=== PATIENT | female | born 2000 | race Two or more races ===

== ENCOUNTER 2022-10-28 01:22 | Emergency (ER) | payer SELFPAY ==
[~2022-10-28] VITALS: Ht 152.4 cm; Wt 41.7 kg
--- NOTE | 2022-10-28 01:30 | NUR ---
TO ER BED 12. BIBMOTHER C/O ABD PAIN AND N/V. PT IS ALERT AND ORIENTED. RR EVEN AND NON LABORED. CONNECTED TO MONITOR
[2022-10-28] MEDS ORDERED: IBUPROFEN 400 MG TABLET PO ONE (02:30)
[2022-10-28 02:56] LABS: BASOPHILS % (AUTO) 0.6 % (0.0-2.0); EOSINOPHILS % (AUTO) 2.2 % (0.0-6.0); HEMATOCRIT 37 % (33-45); HEMOGLOBIN 12.2 g/dL (11.5-14.8); LYMPHOCYTES # (AUTO) 1.9 K/uL (0.8-4.8); LYMPHOCYTES % (AUTO) 23.1 % (20.0-44.0); MEAN CORPUSCULAR HGB CONC 34 g/dl (31.0-36.0); MEAN CORPUSCULAR VOLUME 86 fL (82-100); MONOCYTES # (AUTO) 0.6 K/uL (0.1-1.30); MONOCYTES % (AUTO) 7.7 % (2.0-12.0); NEUTROPHILS # (AUTO) 5.4 K/uL (1.8-8.9); NEUTROPHILS % (AUTO) 66.4 % (43.0-81.0); PLATELET COUNT (AUTO) 261 K/uL (150-450); RED BLOOD CELL COUNT(AUTO) 4.23 MIL/uL (4.0-5.2); WHITE BLOOD COUNT (AUTO) 8.2 K/uL (4.3-11.0)
--- NOTE | 2022-10-28 03:02 | NUR ---
ULTRASOUND AT BEDSIDE
[2022-10-28 03:04] LABS: CALCIUM, SERUM 8.7 mg/dL (8.5-10.1); CREATININE 0.5 mg/dL (0.6-1.3); POTASSIUM 3.4 mmol/L (3.5-5.1)
[2022-10-28 03:08] LABS: BILIRUBIN,URINE NEGATIVE (NEGATIVE); COLOR,URINE YELLOW (YELLOW); LEUKOCYTE ESTERASE ,URINE 2+ (NEGATIVE); NITRITE, URINE NEGATIVE (NEGATIVE); PROTEIN,URINE NEGATIVE (NEGATIVE); UGLUCOSE NEGATIVE (NEGATIVE); UROBILINOGEN,URINE 0.2 EU/dL (0.2)
[2022-10-28] MEDS ORDERED: IBUPROFEN 400 MG TABLET ONE (03:10)
[2022-10-28 03:11] LABS: BACTERIA,URINE Rare /HPF (None Seen); RBC,URINE 0-2 /HPF (0-2); SQUAMOUS EPITHELIAL CELL,UR Few /HPF (None Seen)
[2022-10-28] MEDS ORDERED: NITR100C6 PO ×2 (05:58→06:36)
--- NOTE | 2022-10-28 06:35 | NUR ---
Patient discharged to home in stable condition. Written and verbal after care instructions given. Patient verbalizes understanding of instruction. Pt ambulatory with a steady gait
[2022-10-28 06:36] VITALS: BP 101/52
== END 2022-10-28 06:37 | disposition home or self-care (01) ==
LOC: ER 01:23
DX: S60.011A Contusion of right thumb without damage to nail, initial encounter (principal); N39.0 Urinary tract infection, site not specified; R10.2 Pelvic and perineal pain; Z79.899 Other long term (current) drug therapy; X58.XXXA Exposure to other specified factors, initial encounter; Y93.89 Activity, other specified; Y92.89 Other specified places as the place of occurrence of the external cause; Y99.8 Other external cause status
CPT/HCPCS: 36415; 73120-TC; 76856-TC; 80048-TC; 81001; 84703-TC; 85025-TC; 87086-TC

== ENCOUNTER 2024-02-21 11:55 | Emergency (ER) | payer OTHER ==
[~2024-02-21] VITALS: Ht 152.4 cm; Wt 88.5 kg
[~2024-02-21 11:55] MED LIST: NITR100C6 PO
[2024-02-21] MEDS: IBUPROFEN 600 MG TABLET PO ONE (12:55)
[2024-02-21] MEDS ORDERED: IBUPROFEN 600 MG TABLET ONE (12:55)
[2024-02-21 13:23] LABS: PREGNANCY TEST URINE QUAL NEGATIVE (NEGATIVE)
[2024-02-21] MEDS ORDERED: IBUP-2314 PO (14:05)
[2024-02-21 14:21] VITALS: BP 110/60; TEMP 98.7; O2SAT 98
== END 2024-02-21 14:21 | disposition home or self-care (01) ==
LOC: ER 12:01
DX: R07.89 Other chest pain (principal); M94.0 Chondrocostal junction syndrome [Tietze]
CPT/HCPCS: 71045-TC; 84703-TC